=== PATIENT | female | born 1985 | race Caucasian/White ===

== ENCOUNTER 2017-10-16 18:04 | Inpatient (IN) | payer BC ==
[~2017-10-16 18:04] MED LIST: Oxytocin/0.9 % Sodium Chloride 0 UNIT/0 ML BAG ONE
[2017-10-16] MEDS ORDERED: Sodium Chloride 0.9% 2.5 ML Syringe FLUSH PRN (18:40)
[2017-10-16] MEDS ORDERED: Water For Irrigation,Sterile 1,000 ML Container IRR PRN (18:40)
[2017-10-16] MEDS ORDERED: Carboprost Tromethamine 250 MCG/1 ML Amp IM PRN (18:40)
[2017-10-16] MEDS ORDERED: Sodium Chloride 0.9% 10 ML Syringe FLUSH PRN (18:40)
[2017-10-16] MEDS ORDERED: Butorphanol 1 MG/ML SDV IVPUSH PRN (18:40)
[2017-10-16] MEDS ORDERED: Tranexamic Acid 1,000 MG in Sodium Chloride 0.9% 100 ML IV PRN (18:40)
[2017-10-16] MEDS ORDERED: Methylergonovine 0.2 MG/1 ML Amp IM PRN (18:40)
[2017-10-16] MEDS ORDERED: Misoprostol 200 MCG Tab PO PRN (18:40)
[2017-10-16] MEDS ORDERED: Terbutaline 1 MG/ML SDV SUBCUT PRN (18:40)
[2017-10-16] MEDS ORDERED: Lidocaine 1% 50 ML MDV INJECT PRN (18:40)
[2017-10-16] MEDS ORDERED: Oxytocin/0.9 % Sodium Chloride 30 UNIT/500 ML BAG IV SCH ×2 (18:45)
[2017-10-16] MEDS ORDERED: Misoprostol 25 MCG (1/4 of 100 MCG) Tab VAG SCH (18:45)
[2017-10-16] MEDS: Misoprostol 25 MCG (1/4 of 100 MCG) Tab VAG PRN (20:13)
[2017-10-17] MEDS: Misoprostol 25 MCG (1/4 of 100 MCG) Tab VAG PRN ×3 (00:31→09:13)
[2017-10-17] MEDS: Nalbuphine 10 MG/1 ML Vial IVPUSH PRN ×2 (04:14→12:42)
[2017-10-17] MEDS: Lactated Ringers 1,000 ML IV SCH ×4 (05:00→15:02)
[2017-10-17] MEDS ORDERED: Misoprostol 25 MCG (1/4 of 100 MCG) Tab PO ONE (09:05)
--- NOTE | 2017-10-17 14:09 | PCM.PREANE ---
Preanesthetic Assessment - Anesthesia/Transfusion/Family Hx Anesthesia History: Prior Anesthesia Without Reaction Transfusion History: No Prior Transfusion(s) - Review of Systems General: No Symptoms Pulmonary: No Symptoms Cardiovascular: No Symptoms Gastrointestinal: No Symptoms Neurological: No Symptoms Other: Reports: None - Physical Assessment Height: 5 ft 9 in Weight: 83.461 kg ASA Class: 2 Mental Status: Alert & Oriented x3 Airway Class: Mallampati = 2 Dentition: Reports: Normal Dentition Thyro-Mental Finger Breadths: 3 Mouth Opening Finger Breadths: 3 ROM/Head Extension: Full Lungs: Clear to Auscultation, Normal Respiratory Effort Cardiovascular: Regular Rate, Regular Rhythm - Lab Values: Laboratory Last Values WBC 8.48 K/uL (4.0-11.0) 10/16/17 19:12 RBC 3.23 M/uL (4.30-5.90) L 10/16/17 19:12 Hgb 10.8 g/dL (12.0-16.0) L 10/16/17 19:12 Hct 31.7 % (36.0-46.0) L 10/16/17 19:12 MCV 98.1 fL (80.0-98.0) H 10/16/17 19:12 MCH 33.4 pg (27.0-32.0) H 10/16/17 19:12 MCHC 34.1 g/dL (31.0-37.0) 10/16/17 19:12 RDW Std Deviation 48.9 fl (28.0-62.0) 10/16/17 19:12 RDW Coeff of Komal 14 % (11.0-15.0) 10/16/17 19:12 Plt Count 168 K/uL (150-400) 10/16/17 19:12 MPV 9.70 fL (7.40-12.00) 10/16/17 19:12 Nucleated RBC % 0.0 /100WBC 10/16/17 19:12 Nucleated RBCs # 0 K/uL 10/16/17 19:12 Blood Type A NEGATIVE 10/16/17 19:12 Antibody Screen NEGATIVE 10/16/17 19:12 - Allergies Allergies/Adverse Reactions: Allergies Allergy/AdvReac Type Severity Reaction Status Date / Time No Known Allergies Allergy Verified 10/16/17 18:39 - Acknowledgements Anesthesia Type Planned: Epidural Pt an Appropriate Candidate for the Planned Anesthesia: Yes Alternatives and Risks of Anesthesia Discussed w Pt/Guardian: Yes Pt/Guardian Understands and Agrees with Anesthesia Plan: Yes PreAnesthesia Questionnaire HEENT History: Reports: None Cardiovascular History: Reports: None Respiratory History: Reports: None Gastrointestinal History: Reports: GERD Genitourinary History: Reports: Renal Calculus [employer] History: Reports: : 1 Para: 0 LMP (Approximate): Musculoskeletal History: Reports: None Neurological History: Reports: None Psychiatric History: Reports: None Endocrine/Metabolic History: Reports: Hypothyroidism Hematologic History: Reports: Anemia Immunologic History: Reports: None Oncologic (Cancer) History: Reports: None Dermatologic History: Reports: None - Infectious Disease History Infectious Disease History: Reports: Human Papilloma Virus (HPV) - Past Surgical History Female Surgical History: Reports: LEEP, Lithotripsy/ESWL, Other (See Below) ( Hysteroscopy) - SUBSTANCE USE Smoking Status *Q: Never Smoker Second Hand Smoke Exposure: No Recreational Drug Use History: No - CURRENT (IN HOUSE) MEDS Current Meds: Current Medications Butorphanol Tartrate (Stadol) 1 mg IVPUSH Q1H PRN PRN Reason: Pain Carboprost Tromethamine (Hemabate Ds) 250 mcg IM ASDIRECTED PRN PRN Reason: Post Hemorrhage Lactated Ringer's (Ringers, Lactated) 1,000 mls @ 150 mls/hr IV ASDIRECTED AGUSTIN Oxytocin/Sodium Chloride (Oxytocin 30 Unit/500 Ml-Ns) 30 unit in 500 mls @ 999 mls/hr IV TITRATE AGUSTIN Oxytocin/Sodium Chloride (Oxytocin 30 Unit/500 Ml-Ns) 30 unit in 500 mls @ 2 mls/hr IV TITRATE AGUSTIN; 2 MUNITS/MIN PRN Reason: Protocol Tranexamic Acid 1,000 mg/ (Sodium Chloride) 110 mls @ 600 mls/hr IV ONETIME PRN PRN Reason: Bleeding Lidocaine HCl (Xylocaine 1%) 50 ml INJECT .ONCE PRN PRN Reason: Laceration repair Methylergonovine Maleate (Methergine) 0.2 mg IM ASDIRECTED PRN PRN Reason: Post Hemorrhage Misoprostol (Cytotec) 200 mcg PO .ONCE PRN PRN Reason: Post Hemorrhage Misoprostol (Cytotec) 25 mcg VAG .ONCE AGUSTIN Misoprostol (Cytotec) 25 mcg VAG Q4H PRN PRN Reason: Cervical Ripening Last Admin: 10/17/17 09:13 Dose: 25 mcg Nalbuphine HCl (Nubain) 10 mg IVPUSH Q1H PRN PRN Reason: Pain (severe 7-10) Last Admin: 10/17/17 12:42 Dose: 10 mg Sodium Chloride (Saline Flush) 10 ml FLUSH ASDIRECTED PRN PRN Reason: Keep Vein Open Sodium Chloride (Saline Flush) 2.5 ml FLUSH ASDIRECTED PRN PRN Reason: Keep Vein Open Sterile Water (Sterile Water For Irrigation) 1,000 ml IRR ASDIRECTED PRN PRN Reason: delivery Terbutaline Sulfate (Brethine) 0.25 mg SUBCUT ASDIRECTED PRN PRN Reason: Tacysystole Discontinued Medications Misoprostol (Cytotec) 25 mcg PO ONETIME ONE Stop: 10/17/17 09:06 Last Admin: 10/17/17 09:12 Dose: 25 mcg
[2017-10-17] MEDS ORDERED: Citric Acid/Sodium Citrate Solution 30 ML Cup PO ONE (18:09)
[2017-10-17] MEDS ORDERED: Ondansetron 4 MG/2 ML SDV IVPUSH ONE (19:40)
[2017-10-17] MEDS ORDERED: Ibuprofen 400 MG Tab PO PRN (21:29)
[2017-10-17] MEDS ORDERED: Methylergonovine 0.2 MG/1 ML Amp IM PRN (21:29)
[2017-10-17] MEDS ORDERED: Acetaminophen 500 MG Tab PO PRN (21:29)
[2017-10-17] MEDS ORDERED: Benzocaine/Menthol 20%-0.5% Spray 78 GM Cannister TOP PRN (21:29)
[2017-10-17] MEDS ORDERED: Witch Hazel Medicated Pads 40/Jar TOP PRN (21:29)
[2017-10-17] MEDS ORDERED: Lanolin 100% Cream 7 GM Tube TOP PRN (21:29)
[2017-10-17] MEDS ORDERED: Bisacodyl 10 MG Supp RECTAL PRN (21:29)
--- NOTE | 2017-10-17 21:40 | PCM.DEL ---
L & D Note - General Info Date of Service: 10/17/17 Mother's Due Date: 10/12/17 - Delivery Note Labor: Induced by Oxytocin Cervical Ripening Method: Balloon Device, Misoprostil Delivery Outcome: Livebirth Delivery Method: Spontaneous Vaginal Delivery-Single Presentation: Right Occiput Anterior (MARY) Nuchal Cord: Present Prep: Other Anesthesia Type: Epidural Amniotic Fluid Description: Clear Episiotomy Type: None Laceration: 2nd Degree Suture type: Other (Caprosyn) Suture size: 2-0 Placenta: Intact, Spontaneous Cord: 3 Vessels Estimated Blood Loss: 200 Resuscitation Needed: No [place]: Suctioned Score 1 min: 9 Score 5 min: 9 Second Stage Interventions: Reports: Encouragement Given, Pushing Effectively - Patient Data Weight - Most Recent: 83.461 kg Med Orders - Current: Current Medications Acetaminophen (Tylenol Extra Strength) 500 mg PO Q4H PRN PRN Reason: Pain Acetaminophen (Tylenol Extra Strength) 1,000 mg PO Q4H PRN PRN Reason: Pain Benzocaine/Menthol (Dermoplast Pain Relief 20%-0.5% [place]) 0 gm TOP ASDIRECTED PRN PRN Reason: Perineal Comfort Measure Bisacodyl (Dulcolax) 10 mg RECTAL .ONCE PRN PRN Reason: Constipation Docusate Sodium (Colace) 100 mg PO BID PRN PRN Reason: Constipation Emollient Ointment (Lansinoh Hpa) 0 gm TOP ASDIRECTED PRN PRN Reason: Sore Nipples Ibuprofen (Motrin) 400 mg PO Q4H PRN PRN Reason: Pain Ibuprofen (Motrin) 800 mg PO Q6H PRN PRN Reason: Pain Methylergonovine Maleate (Methergine) 0.2 mg IM .ONCE PRN PRN Reason: Excessive Vaginal Bleeding Oxycodone HCl (Oxycodone) 5 mg PO Q2H PRN PRN Reason: Pain Witch Ange (Tucks) 1 pad TOP ASDIRECTED PRN PRN Reason: comfort care Discontinued Medications Butorphanol Tartrate (Stadol) 1 mg IVPUSH Q1H PRN PRN Reason: Pain Carboprost Tromethamine (Hemabate Ds) 250 mcg IM ASDIRECTED PRN PRN Reason: Post Hemorrhage Citric Acid/Sodium Citrate (Bicitra Solution) 30 ml PO ONETIME ONE Stop: 10/17/17 18:10 Last Admin: 10/17/17 18:24 Dose: 30 ml Lactated Ringer's (Ringers, Lactated) 1,000 mls @ 150 mls/hr IV ASDIRECTED AGUSTIN Last Admin: 10/17/17 15:02 Dose: 150 mls/hr Oxytocin/Sodium Chloride (Oxytocin 30 Unit/500 Ml-Ns) 30 unit in 500 mls @ 999 mls/hr IV TITRATE AGUSTIN Oxytocin/Sodium Chloride (Oxytocin 30 Unit/500 Ml-Ns) 30 unit in 500 mls @ 2 mls/hr IV TITRATE AGUSTIN; 2 MUNITS/MIN PRN Reason: Protocol Last Titration: 10/17/17 16:14 Dose: 10 munits/min, 10 mls/hr Tranexamic Acid 1,000 mg/ (Sodium Chloride) 110 mls @ 600 mls/hr IV ONETIME PRN PRN Reason: Bleeding Fentanyl/Bupivacaine HCl (Wpiwuwev-Oqhut-Cq 2 Mcg/Ml-0.125%) Confirm Administered Dose 100 mls @ as directed EP .STK-MED ONE Stop: 10/17/17 14:22 Fentanyl/Bupivacaine HCl (Hxwmujtx-Nldtf-Qz 2 Mcg/Ml-0.125%) Confirm Administered Dose 100 mls @ as directed EP .STK-MED ONE Stop: 10/17/17 20:28 Lidocaine HCl (Xylocaine 1%) 50 ml INJECT .ONCE PRN PRN Reason: Laceration repair Methylergonovine Maleate (Methergine) 0.2 mg IM ASDIRECTED PRN PRN Reason: Post Hemorrhage Misoprostol (Cytotec) 200 mcg PO .ONCE PRN PRN Reason: Post Hemorrhage Misoprostol (Cytotec) 25 mcg VAG .ONCE AGUSTIN Misoprostol (Cytotec) 25 mcg VAG Q4H PRN PRN Reason: Cervical Ripening Last Admin: 10/17/17 09:13 Dose: 25 mcg Misoprostol (Cytotec) 25 mcg PO ONETIME ONE Stop: 10/17/17 09:06 Last Admin: 10/17/17 09:12 Dose: 25 mcg Nalbuphine HCl (Nubain) 10 mg IVPUSH Q1H PRN PRN Reason: Pain (severe 7-10) Last Admin: 10/17/17 12:42 Dose: 10 mg Ondansetron HCl (Zofran) 4 mg IVPUSH ONETIME ONE Stop: 10/17/17 19:41 Last Admin: 10/17/17 19:55 Dose: 4 mg Sodium Chloride (Saline Flush) 10 ml FLUSH ASDIRECTED PRN PRN Reason: Keep Vein Open Sodium Chloride (Saline Flush) 2.5 ml FLUSH ASDIRECTED PRN PRN Reason: Keep Vein Open Sterile Water (Sterile Water For Irrigation) 1,000 ml IRR ASDIRECTED PRN PRN Reason: delivery Terbutaline Sulfate (Brethine) 0.25 mg SUBCUT ASDIRECTED PRN PRN Reason: Tacysystole - Problem List & Annotations (1) Vaginal delivery SNOMED Code(s): 687558868 Code(s): O80 - ENCOUNTER FOR FULL-TERM UNCOMPLICATED DELIVERY Status: Acute Current Visit: Yes - Problem List Review Problem List Initiated/Reviewed/Updated: Yes - My Orders Last 24 Hours: My Active Orders 10/17/17 20:57 BLOOD GAS ARTERIAL UMBILICAL [BG] Routine BLOOD GAS VENOUS UMBILICAL [BG] Routine 10/17/17 21:29 Patient Status [ADT] Routine May Shower [RC] ASDIRECTED Up ad Risa [RC] ASDIRECTED Vital Signs [RC] PER UNIT ROUTINE RHIG WORKUP, [BBK] Routine Acetaminophen [Tylenol Extra Strength] 1,000 mg PO Q4H PRN Acetaminophen [Tylenol Extra Strength] 500 mg PO Q4H PRN Benzocaine/Menthol [Dermoplast Pain Relief 20%-0.5% [place]] 78 gm TOP ASDIRECTED PRN Bisacodyl [Dulcolax] 10 mg RECTAL .ONCE PRN Docusate Sodium [Colace] 100 mg PO BID PRN Ibuprofen [Motrin] 400 mg PO Q4H PRN Ibuprofen [Motrin] 800 mg PO Q6H PRN Lanolin [Lansinoh HPA] See Dose Instructions TOP ASDIRECTED PRN Methylergonovine [Methergine] 0.2 mg IM .ONCE PRN Witch Ange [Tucks] 1 pad TOP ASDIRECTED PRN oxyCODONE 5 mg PO Q2H PRN Assess Lochia [WOMSER] Per Unit Routine Assess Uterine Involution [WOMSER] Per Unit Routine Peripheral IV Discontinue [OM.PC] Routine Resuscitation Status Routine 10/17/17 21:30 Perineal Care [OM.PC] Per Unit Routine 10/18/17 05:11 HEMOGLOBIN/HEMATOCRIT,HH [HEME] Timed 10/18/17 07:30 Levothyroxine [Synthroid] 100 mcg PO ACBREAKFAST 10/18/17 Breakfast Regular Diet [DIET] 10/19/17 07:30 Levothyroxine [Synthroid] 50 mcg PO ACBREAKFAST
--- NOTE | 2017-10-18 02:14 | OR ---
SURGEON: Sade Garcia M.D. DATE OF PROCEDURE: 10/17/2017 PREOPERATIVE DIAGNOSES: A 40 and 4/7 week intrauterine , postdates induction, in vitro fertilization . POSTOPERATIVE DIAGNOSES: A 40 and 4/7 week intrauterine , postdates induction, in vitro fertilization . PROCEDURE: Cytotec balloon and Pitocin induction of labor, term spontaneous vaginal delivery, and repair of second-degree laceration. ANESTHESIA: Epidural. ESTIMATED BLOOD LOSS: Less than 200 mL. FINDINGS: Live born male, scores 9 and 9 weighing 4040 g. Placenta spontaneous. Schultze intact with 3 vessels. Second-degree perineal laceration repaired. COMPLICATIONS: None known. DISPOSITION: Mother and baby are in [facility] in good condition. BRIEF HISTORY: This is a 32-year-old female. She is G1, P0. She conceived with in-vitro fertilization. She is blood type A negative. Rubella immune. She presents at 40 and 3/7 weeks' gestation for induction of labor. She received 3 doses of Cytotec followed by balloon for assistance with cervical dilatation. After she had been in the process of induction for approximately 18 hours, she had spontaneous rupture of membranes. The balloon was expelled. Intrauterine pressure catheter was placed. She received an epidural, and Pitocin was initiated. By 6:00 p.m., she was 5 cm. By 8:00 p.m., she was complete. DESCRIPTION OF PROCEDURE: With the patient in dorsal lithotomy position, the patient pushed over 30-minute time period to a 5+ station, at which time the head was delivered spontaneously and atraumatically over the perineum with support with subsequent delivery of the 's shoulders and body without any difficulty. Nuchal cord was noted and was reduced after delivery. The infant was bulb suctioned by nose and mouth and handed to the mother in the presence of the nurse attending delivery. The is a liveborn male, scores 9 and 9, weighing 4040 g. Pitocin was initiated after delivery of the infant to assist with delivery of the placenta, which was delivered spontaneously. Schultze intact with 3 vessels. Prior to delivery of the placenta after the cord had ceased to pulsate, it was doubly clamped, cut, and cord blood was collected for cord ABGs as well as routine cord blood sampling. Inspection of the pelvis and perineum revealed no periurethral, vaginal sidewall, cervical, or rectal lacerations. There was a second-degree perineal laceration that was repaired using multiple interrupted [id number] sutures of 2-0 Caprosyn for the perineum. A deep running suture of 2-0 Caprosyn for the vaginal mucosa with a running suture over the perineum for approximation, and a subcuticular suture of the same for the skin. Final sponge, needle, and instrument counts were correct. There were no known complications. Mother and are in [facility] in good condition. JULITA GOODWIN /[id number]
[2017-10-18] MEDS: Ibuprofen 800 MG Tab PO PRN ×3 (05:26→21:49)
[2017-10-18] MEDS: oxyCODONE 5 MG Tab PO PRN ×3 (05:27→21:48)
[2017-10-18] MEDS ORDERED: Levothyroxine 100 MCG Tab PO SCH ×2 (07:30→07:50)
--- NOTE | 2017-10-18 07:41 | PCM48HPAN ---
Post Anesthesia Note - EVALUATION WITHIN 48HRS OF ANESTHETIC Vital Signs in Normal Range: Yes Patient Participated in Evaluation: Yes Respiratory Function Stable: Yes Airway Patent: Yes Cardiovascular Function Stable: Yes Hydration Status Stable: Yes Pain Control Satisfactory: Yes Nausea and Vomiting Control Satisfactory: Yes Mental Status Recovered: Yes Resp Rate: 18
[2017-10-18] MEDS ORDERED: Hydrocortisone 2.5% Crm 30 GM Tube TOP PRN (08:56)
--- NOTE | 2017-10-18 09:03 | PCM.PNPP ---
- General Info Date of Service: 10/18/17 Functional Status: Reports: Pain Controlled, Tolerating Diet, Ambulating, Urinating, Other (c/o painful hemorrhoids) - Review of Systems General: Denies: Fever, Malaise, Chills HEENT: Denies: Headaches Pulmonary: Denies: Shortness of Breath, Pleuritic Chest Pain Cardiovascular: Denies: Chest Pain, Palpitations, Dyspnea on Exertion Gastrointestinal: Denies: Abdominal Pain Genitourinary: Denies: Dysuria, Burning, Incontinence Psychiatric: Reports: No Symptoms - General Info Date of Service: 10/18/17 - Patient Data Vital Signs - Most Recent: Last Vital Signs Temp 36.3 C 10/18/17 01:00 Pulse 88 10/18/17 01:00 Resp 18 10/18/17 07:40 BP 96/61 10/18/17 01:00 Pulse Ox 96 10/18/17 01:00 Weight - Most Recent: 184 lb Lab Results - Last 24 Hours: Laboratory Results - last 24 hr 10/17/17 10/17/17 10/18/17 Range/Units 20:56 22:15 06:30 Hgb 9.7 L (12.0-16.0) g/dL Hct 28.4 L (36.0-46.0) % Cord ABG pH 7.147 L (7.18-7.38) Cord ABG Base Excess -7 (-10--2) Cord VBG pH 7.309 (7.25-7.45) Cord VBG Base Excess -5 (-10--2) Antibody Screen NEGATIVE Screen NEGATIVE (NEGATIVE) RhIG Candidate? YES Rhogam Indicated YES, BABY RH POS H Med Orders - Current: Current Medications Acetaminophen (Tylenol Extra Strength) 500 mg PO Q4H PRN PRN Reason: Pain Acetaminophen (Tylenol Extra Strength) 1,000 mg PO Q4H PRN PRN Reason: Pain Benzocaine/Menthol (Dermoplast Pain Relief 20%-0.5% [place]) 0 gm TOP ASDIRECTED PRN PRN Reason: Perineal Comfort Measure Bisacodyl (Dulcolax) 10 mg RECTAL .ONCE PRN PRN Reason: Constipation Docusate Sodium (Colace) 100 mg PO BID PRN PRN Reason: Constipation Emollient Ointment (Lansinoh Hpa) 0 gm TOP ASDIRECTED PRN PRN Reason: Sore Nipples Hydrocortisone (Proctozone-Hc 2.5% Crm) 0.5 gm TOP QID PRN PRN Reason: Itching Ibuprofen (Motrin) 400 mg PO Q4H PRN PRN Reason: Pain Ibuprofen (Motrin) 800 mg PO Q6H PRN PRN Reason: Pain Last Admin: 10/18/17 05:26 Dose: 800 mg Levothyroxine Sodium (Synthroid) 50 mcg PO [id number]@0730 AGUSTIN Levothyroxine Sodium (Synthroid) 100 mcg PO [id number]@0730 [facility] Last Admin: 10/18/17 07:59 Dose: 100 mcg Methylergonovine Maleate (Methergine) 0.2 mg IM .ONCE PRN PRN Reason: Excessive Vaginal Bleeding Oxycodone HCl (Oxycodone) 5 mg PO Q2H PRN PRN Reason: Pain Last Admin: 10/18/17 05:27 Dose: 5 mg Witch Ange (Tucks) 1 pad TOP ASDIRECTED PRN PRN Reason: comfort care Discontinued Medications Butorphanol Tartrate (Stadol) 1 mg IVPUSH Q1H PRN PRN Reason: Pain Carboprost Tromethamine (Hemabate Ds) 250 mcg IM ASDIRECTED PRN PRN Reason: Post Hemorrhage Citric Acid/Sodium Citrate (Bicitra Solution) 30 ml PO ONETIME ONE Stop: 10/17/17 18:10 Last Admin: 10/17/17 18:24 Dose: 30 ml Lactated Ringer's (Ringers, Lactated) 1,000 mls @ 150 mls/hr IV ASDIRECTED [facility] Last Admin: 10/17/17 15:02 Dose: 150 mls/hr Oxytocin/Sodium Chloride (Oxytocin 30 Unit/500 Ml-Ns) 30 unit in 500 mls @ 999 mls/hr IV TITRATE AGUSTIN Oxytocin/Sodium Chloride (Oxytocin 30 Unit/500 Ml-Ns) 30 unit in 500 mls @ 2 mls/hr IV TITRATE [facility]; 2 MUNITS/MIN PRN Reason: Protocol Last Titration: 10/17/17 16:14 Dose: 10 munits/min, 10 mls/hr Tranexamic Acid 1,000 mg/ (Sodium Chloride) 110 mls @ 600 mls/hr IV ONETIME PRN PRN Reason: Bleeding Fentanyl/Bupivacaine HCl (Keoxoxag-Gyhkm-Es 2 Mcg/Ml-0.125%) Confirm Administered Dose 100 mls @ as directed EP .STK-MED ONE Stop: 10/17/17 14:22 Fentanyl/Bupivacaine HCl (Zagkqybv-Rgjjh-Ea 2 Mcg/Ml-0.125%) Confirm Administered Dose 100 mls @ as directed EP .STK-MED ONE Stop: 10/17/17 20:28 Levothyroxine Sodium (Synthroid) 100 mcg PO ACBREAKFAST AGUSTIN Lidocaine HCl (Xylocaine 1%) 50 ml INJECT .ONCE PRN PRN Reason: Laceration repair Methylergonovine Maleate (Methergine) 0.2 mg IM ASDIRECTED PRN PRN Reason: Post Hemorrhage Misoprostol (Cytotec) 200 mcg PO .ONCE PRN PRN Reason: Post Hemorrhage Misoprostol (Cytotec) 25 mcg VAG .ONCE AGUSTIN Misoprostol (Cytotec) 25 mcg VAG Q4H PRN PRN Reason: Cervical Ripening Last Admin: 10/17/17 09:13 Dose: 25 mcg Misoprostol (Cytotec) 25 mcg PO ONETIME ONE Stop: 10/17/17 09:06 Last Admin: 10/17/17 09:12 Dose: 25 mcg Nalbuphine HCl (Nubain) 10 mg IVPUSH Q1H PRN PRN Reason: Pain (severe 7-10) Last Admin: 10/17/17 12:42 Dose: 10 mg Ondansetron HCl (Zofran) 4 mg IVPUSH ONETIME ONE Stop: 10/17/17 19:41 Last Admin: 10/17/17 19:55 Dose: 4 mg Sodium Chloride (Saline Flush) 10 ml FLUSH ASDIRECTED PRN PRN Reason: Keep Vein Open Sodium Chloride (Saline Flush) 2.5 ml FLUSH ASDIRECTED PRN PRN Reason: Keep Vein Open Sterile Water (Sterile Water For Irrigation) 1,000 ml IRR ASDIRECTED PRN PRN Reason: delivery Terbutaline Sulfate (Brethine) 0.25 mg SUBCUT ASDIRECTED PRN PRN Reason: Tacysystole - Infant Interaction Infant Disposition, : in Room with Family Feeding: Breastfed Infant; Nursed Well, Continues to Breastfeed Support Person: - Recovery Exam Fundal Tone: Firm Fundal Level: 1 Fingerbreadths Below Umbilicus Fundal Placement: Midline Lochia Amount: Small Lochia Color: Rubra/Red Perineum Description: Intact, Minimal Bruising/Swelling Urinary Elimination: Voided - Exam General: Alert, Oriented Lungs: Clear to Auscultation, Normal Respiratory Effort Cardiovascular: Regular Rate, Regular Rhythm GI/Abdominal Exam: Normal Bowel Sounds, Soft, Non-Tender Extremities: No Pedal Edema, Pedal Edema Skin: Warm Neurological: No New Focal Deficit Psy/Mental Status: Alert, Normal Affect, Normal Mood - Problem List & Annotations (1) Vaginal delivery SNOMED Code(s): 280171915 Code(s): O80 - ENCOUNTER FOR FULL-TERM UNCOMPLICATED DELIVERY Status: Acute Current Visit: Yes - Problem List Review Problem List Initiated/Reviewed/Updated: Yes - My Orders Last 24 Hours: My Active Orders 10/18/17 08:56 Hydrocortisone [Proctozone-HC 2.5% Crm] 0.5 gm TOP QID PRN - Assessment Assessment:: PPD#1 s/p normal vaginal delivery, stable and afebrile - Plan Plan:: Continue routine care Anusol-HC cream PRN for haemorrhoids Aim for discharge tomorrow
[2017-10-18] MEDS: Docusate Sodium 100 MG Cap PO PRN ×2 (12:37→21:48)
[2017-10-18] MEDS: Acetaminophen 500 MG Tab PO PRN (18:03)
[2017-10-19] MEDS: Ibuprofen 800 MG Tab PO PRN ×2 (03:20→08:08)
[2017-10-19] MEDS ORDERED: Levothyroxine 50 MCG Tab PO SCH (07:30)
--- NOTE | 2017-10-19 08:23 | PCM.PNPP ---
<Yuko Burrows - Last Filed: 10/19/17 08:20> - General Info Date of Service: 10/19/17 Functional Status: Reports: Pain Controlled, Tolerating Diet, Ambulating, Urinating - Review of Systems General: Denies: Fever, Weakness, Fatigue Pulmonary: Denies: Shortness of Breath, Pleuritic Chest Pain, Cough Cardiovascular: Denies: Chest Pain, Palpitations, Dyspnea on Exertion Gastrointestinal: Denies: Abdominal Pain Genitourinary: Denies: Dysuria - General Info Date of Service: 10/19/17 - Patient Data Vital Signs - Most Recent: Last Vital Signs Temp 36.7 C 10/18/17 20:00 Pulse 82 10/18/17 20:00 Resp 16 10/18/17 20:00 BP 102/60 10/18/17 20:00 Pulse Ox 98 10/18/17 20:00 Weight - Most Recent: 184 lb I&O - Last 24 Hours: Intake & Output 10/18/17 10/19/17 10/19/17 22:59 06:59 14:59 Intake Total 2 Balance 2 Lab Results - Last 24 Hours: Laboratory Results - last 24 hr 10/17/17 Range/Units 22:15 Antibody Screen NEGATIVE Screen NEGATIVE (NEGATIVE) RhIG Candidate? YES Rhogam Indicated YES, BABY RH POS H Med Orders - Current: Current Medications Acetaminophen (Tylenol Extra Strength) 500 mg PO Q4H PRN PRN Reason: Pain Acetaminophen (Tylenol Extra Strength) 1,000 mg PO Q4H PRN PRN Reason: Pain Last Admin: 10/18/17 18:03 Dose: 1,000 mg Benzocaine/Menthol (Dermoplast Pain Relief 20%-0.5% [place]) 0 gm TOP ASDIRECTED PRN PRN Reason: Perineal Comfort Measure Bisacodyl (Dulcolax) 10 mg RECTAL .ONCE PRN PRN Reason: Constipation Docusate Sodium (Colace) 100 mg PO BID PRN PRN Reason: Constipation Last Admin: 10/18/17 21:48 Dose: 100 mg Emollient Ointment (Lansinoh Hpa) 0 gm TOP ASDIRECTED PRN PRN Reason: Sore Nipples Hydrocortisone (Proctozone-Hc 2.5% Crm) 0.5 gm TOP QID PRN PRN Reason: Itching Ibuprofen (Motrin) 400 mg PO Q4H PRN PRN Reason: Pain Ibuprofen (Motrin) 800 mg PO Q6H PRN PRN Reason: Pain Last Admin: 10/19/17 08:08 Dose: 800 mg Levothyroxine Sodium (Synthroid) 50 mcg PO SuTuWeFrSa@0730 [facility] Last Admin: 10/19/17 07:46 Dose: 50 mcg Levothyroxine Sodium (Synthroid) 100 mcg PO MoTh@0730 [facility] Last Admin: 10/18/17 07:59 Dose: 100 mcg Methylergonovine Maleate (Methergine) 0.2 mg IM .ONCE PRN PRN Reason: Excessive Vaginal Bleeding Oxycodone HCl (Oxycodone) 5 mg PO Q2H PRN PRN Reason: Pain Last Admin: 10/18/17 21:48 Dose: 5 mg Witch Ange (Tucks) 1 pad TOP ASDIRECTED PRN PRN Reason: comfort care Discontinued Medications Butorphanol Tartrate (Stadol) 1 mg IVPUSH Q1H PRN PRN Reason: Pain Carboprost Tromethamine (Hemabate Ds) 250 mcg IM ASDIRECTED PRN PRN Reason: Post Hemorrhage Citric Acid/Sodium Citrate (Bicitra Solution) 30 ml PO ONETIME ONE Stop: 10/17/17 18:10 Last Admin: 10/17/17 18:24 Dose: 30 ml Lactated Ringer's (Ringers, Lactated) 1,000 mls @ 150 mls/hr IV ASDIRECTED [facility] Last Admin: 10/17/17 15:02 Dose: 150 mls/hr Oxytocin/Sodium Chloride (Oxytocin 30 Unit/500 Ml-Ns) 30 unit in 500 mls @ 999 mls/hr IV TITRATE AGUSTIN Oxytocin/Sodium Chloride (Oxytocin 30 Unit/500 Ml-Ns) 30 unit in 500 mls @ 2 mls/hr IV TITRATE [facility]; 2 MUNITS/MIN PRN Reason: Protocol Last Titration: 10/17/17 16:14 Dose: 10 munits/min, 10 mls/hr Tranexamic Acid 1,000 mg/ (Sodium Chloride) 110 mls @ 600 mls/hr IV ONETIME PRN PRN Reason: Bleeding Fentanyl/Bupivacaine HCl (Gqooplqv-Quvut-Cp 2 Mcg/Ml-0.125%) Confirm Administered Dose 100 mls @ as directed EP .STK-MED ONE Stop: 10/17/17 14:22 Last Admin: 10/18/17 20:25 Dose: Not Given Fentanyl/Bupivacaine HCl (Ubpsidsl-Mtsea-Yu 2 Mcg/Ml-0.125%) Confirm Administered Dose 100 mls @ as directed EP .STK-MED ONE Stop: 10/17/17 20:28 Last Admin: 10/18/17 20:25 Dose: Not Given Levothyroxine Sodium (Synthroid) 100 mcg PO ACBREAKFAST AGUSTIN Lidocaine HCl (Xylocaine 1%) 50 ml INJECT .ONCE PRN PRN Reason: Laceration repair Methylergonovine Maleate (Methergine) 0.2 mg IM ASDIRECTED PRN PRN Reason: Post Hemorrhage Misoprostol (Cytotec) 200 mcg PO .ONCE PRN PRN Reason: Post Hemorrhage Misoprostol (Cytotec) 25 mcg VAG .ONCE AGUSTIN Misoprostol (Cytotec) 25 mcg VAG Q4H PRN PRN Reason: Cervical Ripening Last Admin: 10/17/17 09:13 Dose: 25 mcg Misoprostol (Cytotec) 25 mcg PO ONETIME ONE Stop: 10/17/17 09:06 Last Admin: 10/17/17 09:12 Dose: 25 mcg Nalbuphine HCl (Nubain) 10 mg IVPUSH Q1H PRN PRN Reason: Pain (severe 7-10) Last Admin: 10/17/17 12:42 Dose: 10 mg Ondansetron HCl (Zofran) 4 mg IVPUSH ONETIME ONE Stop: 10/17/17 19:41 Last Admin: 10/17/17 19:55 Dose: 4 mg Sodium Chloride (Saline Flush) 10 ml FLUSH ASDIRECTED PRN PRN Reason: Keep Vein Open Sodium Chloride (Saline Flush) 2.5 ml FLUSH ASDIRECTED PRN PRN Reason: Keep Vein Open Sterile Water (Sterile Water For Irrigation) 1,000 ml IRR ASDIRECTED PRN PRN Reason: delivery Terbutaline Sulfate (Brethine) 0.25 mg SUBCUT ASDIRECTED PRN PRN Reason: Tacysystole - Infant Interaction Infant Disposition, : in Room with Family Infant Interaction: Holding Infant Infant Feeding: Breastfed Infant; Nursed Well, Continues to Breastfeed Support Person: - Recovery Exam Fundal Tone: Firm Fundal Level: 2 Fingerbreadths Below Umbilicus Fundal Placement: Midline Lochia Amount: Scant Lochia Color: Rubra/Red Perineum Description: Other (see below) Other Perinuem Description: 2nd degree laceration with repair Episiotomy/Laceration: Approximated Bladder Status: Voiding Urinary Elimination: Voided - Exam General: Alert, Oriented Neck: Supple Lungs: Clear to Auscultation, Normal Respiratory Effort Cardiovascular: Regular Rate, Regular Rhythm GI/Abdominal Exam: Normal Bowel Sounds, No Distention Extremities: Normal Inspection, Normal Capillary Refill, Pedal Edema (trace) Psy/Mental Status: Alert, Normal Affect, Normal Mood - Problem List Review Problem List Initiated/Reviewed/Updated: Yes - Assessment Assessment:: PPD#2 s/p normal vaginal delivery. Minimal pain and lochia. Discharge home today. - Plan Plan:: Discharge instructions reviewed. Nothing in the vagina for 6 weeks. Continue PNV while breast feeding. Can use OTC ibuprofen/tylenol as needed for pain. Instructed patient to call if she develops fever greater then 101 or bleeding through a large pad an hour. F/U with [facility] in 6 weeks <Jackie Soriano - Last Filed: 10/19/17 08:54> - Patient Data Vital Signs - Most Recent: Last Vital Signs Temp 36.7 C 10/18/17 20:00 Pulse 82 10/18/17 20:00 Resp 16 10/18/17 20:00 BP 102/60 10/18/17 20:00 Pulse Ox 98 10/18/17 20:00 I&O - Last 24 Hours: Intake & Output 10/18/17 10/19/17 10/19/17 22:59 06:59 14:59 Intake Total 2 Balance 2 Lab Results - Last 24 Hours: Laboratory Results - last 24 hr 10/17/17 Range/Units 22:15 Antibody Screen NEGATIVE Screen NEGATIVE (NEGATIVE) RhIG Candidate? YES Rhogam Indicated YES, BABY RH POS H Med Orders - Current: Current Medications Acetaminophen (Tylenol Extra Strength) 500 mg PO Q4H PRN PRN Reason: Pain Acetaminophen (Tylenol Extra Strength) 1,000 mg PO Q4H PRN PRN Reason: Pain Last Admin: 10/18/17 18:03 Dose: 1,000 mg Benzocaine/Menthol (Dermoplast Pain Relief 20%-0.5% [place]) 0 gm TOP ASDIRECTED PRN PRN Reason: Perineal Comfort Measure Bisacodyl (Dulcolax) 10 mg RECTAL .ONCE PRN PRN Reason: Constipation Docusate Sodium (Colace) 100 mg PO BID PRN PRN Reason: Constipation Last Admin: 10/18/17 21:48 Dose: 100 mg Emollient Ointment (Lansinoh Hpa) 0 gm TOP ASDIRECTED PRN PRN Reason: Sore Nipples Hydrocortisone (Proctozone-Hc 2.5% Crm) 0.5 gm TOP QID PRN PRN Reason: Itching Ibuprofen (Motrin) 400 mg PO Q4H PRN PRN Reason: Pain Ibuprofen (Motrin) 800 mg PO Q6H PRN PRN Reason: Pain Last Admin: 10/19/17 08:08 Dose: 800 mg Levothyroxine Sodium (Synthroid) 50 mcg PO SuTuWeFrSa@0730 [facility] Last Admin: 10/19/17 07:46 Dose: 50 mcg Levothyroxine Sodium (Synthroid) 100 mcg PO MoTh@0730 [facility] Last Admin: 10/18/17 07:59 Dose: 100 mcg Methylergonovine Maleate (Methergine) 0.2 mg IM .ONCE PRN PRN Reason: Excessive Vaginal Bleeding Oxycodone HCl (Oxycodone) 5 mg PO Q2H PRN PRN Reason: Pain Last Admin: 10/18/17 21:48 Dose: 5 mg Witch Ange (Tucks) 1 pad TOP ASDIRECTED PRN PRN Reason: comfort care Discontinued Medications Butorphanol Tartrate (Stadol) 1 mg IVPUSH Q1H PRN PRN Reason: Pain Carboprost Tromethamine (Hemabate Ds) 250 mcg IM ASDIRECTED PRN PRN Reason: Post Hemorrhage Citric Acid/Sodium Citrate (Bicitra Solution) 30 ml PO ONETIME ONE Stop: 10/17/17 18:10 Last Admin: 10/17/17 18:24 Dose: 30 ml Lactated Ringer's (Ringers, Lactated) 1,000 mls @ 150 mls/hr IV ASDIRECTED [facility] Last Admin: 10/17/17 15:02 Dose: 150 mls/hr Oxytocin/Sodium Chloride (Oxytocin 30 Unit/500 Ml-Ns) 30 unit in 500 mls @ 999 mls/hr IV TITRATE AGUSTIN Oxytocin/Sodium Chloride (Oxytocin 30 Unit/500 Ml-Ns) 30 unit in 500 mls @ 2 mls/hr IV TITRATE AGUSTIN; 2 MUNITS/MIN PRN Reason: Protocol Last Titration: 10/17/17 16:14 Dose: 10 munits/min, 10 mls/hr Tranexamic Acid 1,000 mg/ (Sodium Chloride) 110 mls @ 600 mls/hr IV ONETIME PRN PRN Reason: Bleeding Fentanyl/Bupivacaine HCl (Ckdqvmwn-Eavqm-Ip 2 Mcg/Ml-0.125%) Confirm Administered Dose 100 mls @ as directed EP .STK-MED ONE Stop: 10/17/17 14:22 Last Admin: 10/18/17 20:25 Dose: Not Given Fentanyl/Bupivacaine HCl (Zplihrul-Wjtic-Pz 2 Mcg/Ml-0.125%) Confirm Administered Dose 100 mls @ as directed EP .STK-MED ONE Stop: 10/17/17 20:28 Last Admin: 10/18/17 20:25 Dose: Not Given Levothyroxine Sodium (Synthroid) 100 mcg PO ACBREAKFAST [facility] Lidocaine HCl (Xylocaine 1%) 50 ml INJECT .ONCE PRN PRN Reason: Laceration repair Methylergonovine Maleate (Methergine) 0.2 mg IM ASDIRECTED PRN PRN Reason: Post Hemorrhage Misoprostol (Cytotec) 200 mcg PO .ONCE PRN PRN Reason: Post Hemorrhage Misoprostol (Cytotec) 25 mcg VAG .ONCE [facility] Misoprostol (Cytotec) 25 mcg VAG Q4H PRN PRN Reason: Cervical Ripening Last Admin: 10/17/17 09:13 Dose: 25 mcg Misoprostol (Cytotec) 25 mcg PO ONETIME ONE Stop: 10/17/17 09:06 Last Admin: 10/17/17 09:12 Dose: 25 mcg Nalbuphine HCl (Nubain) 10 mg IVPUSH Q1H PRN PRN Reason: Pain (severe 7-10) Last Admin: 10/17/17 12:42 Dose: 10 mg Ondansetron HCl (Zofran) 4 mg IVPUSH ONETIME ONE Stop: 10/17/17 19:41 Last Admin: 10/17/17 19:55 Dose: 4 mg Sodium Chloride (Saline Flush) 10 ml FLUSH ASDIRECTED PRN PRN Reason: Keep Vein Open Sodium Chloride (Saline Flush) 2.5 ml FLUSH ASDIRECTED PRN PRN Reason: Keep Vein Open Sterile Water (Sterile Water For Irrigation) 1,000 ml IRR ASDIRECTED PRN PRN Reason: delivery Terbutaline Sulfate (Brethine) 0.25 mg SUBCUT ASDIRECTED PRN PRN Reason: Tacysystole - Problem List & Annotations (1) Vaginal delivery SNOMED Code(s): 405354967 Code(s): O80 - ENCOUNTER FOR FULL-TERM UNCOMPLICATED DELIVERY Status: Acute Current Visit: Yes - My Orders Last 24 Hours: My Active Orders 10/18/17 08:56 Hydrocortisone [Proctozone-HC 2.5% Crm] 0.5 gm TOP QID PRN - Assessment Assessment:: Agree with above - Plan Plan:: Patient discharged home today.
[2017-10-19] MEDS: Acetaminophen 500 MG Tab PO PRN (12:42)
== END 2017-10-19 13:30 | disposition home or self-care (01) | DRG 560 ==
LOC: MW.OBCHECK 18:04 → MW.OB 18:05 → MW.OBCHECK 18:41 → MW.OB 18:41 → OBSVTOIN 10-17 20:56
PROVIDERS: ADMIT Obstetrics & Gynecology; ATTEND Obstetrics & Gynecology
PROC: 10E0XZZ Delivery of Products of Conception, External Approach (ICD-10-PCS; principal; 2017-10-17)
PROC: 3E0P7VZ Introduction of Hormone into Female Reproductive, Via Natural or Artificial Opening (ICD-10-PCS; 2017-10-17)
PROC: 0U7C7ZZ Dilation of Cervix, Via Natural or Artificial Opening (ICD-10-PCS; 2017-10-17)
PROC: 3E033VJ Introduction of Other Hormone into Peripheral Vein, Percutaneous Approach (ICD-10-PCS; 2017-10-17)
PROC: 0KQM0ZZ Repair Perineum Muscle, Open Approach (ICD-10-PCS; 2017-10-17)
DX: O48.0 Post-term pregnancy (principal); O70.1 Second degree perineal laceration during delivery; O69.1XX0 Labor and delivery complicated by cord around neck, with compression, not applicable or unspecified; O09.813 Supervision of pregnancy resulting from assisted reproductive technology, third trimester; Z3A.40 40 weeks gestation of pregnancy; Z37.0 Single live birth
CPT/HCPCS: 36415; 51702; 59025; 59409; 82803; 85014; 85018; 85027; 85460; 86850; 86900; 86901; A9270-GY; J2300; J2405; J2590; J2790; J7120

== ENCOUNTER 2020-02-20 13:23 | Inpatient (IN) | payer BC ==
[2020-02-20] MEDS ORDERED: Methylergonovine 0.2 MG/1 ML Amp IM PRN (13:36)
[2020-02-20] MEDS ORDERED: Tranexamic Acid 1,000 MG in Sodium Chloride 0.9% 100 ML IV PRN (13:36)
[2020-02-20] MEDS ORDERED: Ondansetron 4 MG/2 ML SDV IVPUSH PRN (13:36)
[2020-02-20] MEDS ORDERED: Sodium Chloride 0.9% 2.5 ML Syringe FLUSH PRN (13:36)
[2020-02-20] MEDS ORDERED: Butorphanol 1 MG/ML SDV IVPUSH PRN (13:36)
[2020-02-20] MEDS ORDERED: Carboprost Tromethamine 250 MCG/1 ML Amp IM PRN (13:36)
[2020-02-20] MEDS ORDERED: Nalbuphine 10 MG/1 ML Vial IVPUSH PRN (13:36)
[2020-02-20] MEDS ORDERED: Lidocaine 1% 50 ML MDV INJECT PRN (13:36)
[2020-02-20] MEDS ORDERED: Sodium Chloride 0.9% 10 ML SDV IV PRN (13:36)
[2020-02-20] MEDS ORDERED: Sodium Chloride 0.9% 10 ML Syringe FLUSH PRN (13:36)
[2020-02-20] MEDS ORDERED: Misoprostol 200 MCG Tab PO PRN (13:36)
[2020-02-20] MEDS ORDERED: Water For Irrigation,Sterile 1,000 ML Container IRR PRN (13:36)
[2020-02-20] MEDS ORDERED: Oxytocin/0.9 % Sodium Chloride 30 UNIT/500 ML BAG IV SCH ×2 (13:45→14:45)
[2020-02-20] MEDS ORDERED: Terbutaline 1 MG/ML SDV SUBCUT PRN ×2 (14:32→17:52)
[2020-02-20] MEDS ORDERED: Misoprostol 25 MCG (1/4 of 100 MCG) Tab PO PRN (14:32)
[2020-02-20] MEDS ORDERED: Misoprostol 25 MCG (1/4 of 100 MCG) Tab VAG PRN ×2 (14:32→19:15)
[2020-02-20] MEDS: Misoprostol 25 MCG (1/4 of 100 MCG) Tab VAG PRN (20:10)
[2020-02-21] MEDS: Misoprostol 25 MCG (1/4 of 100 MCG) Tab VAG PRN (01:02)
[2020-02-21] MEDS ORDERED: hydrOXYzine Pamoate 25 MG Cap PO ONE (01:51)
[2020-02-21] MEDS: Lactated Ringers 1,000 ML IV SCH ×2 (04:15→08:28)
[2020-02-21] MEDS ORDERED: fentaNYL 100 MCG/2 ML SDV ONE (07:56)
[2020-02-21] MEDS ORDERED: Ropivacaine HCl/PF 100 ML ONE (07:56)
--- NOTE | 2020-02-21 08:23 | PCM.PREANE ---
Preanesthetic Assessment - Anesthesia/Transfusion/Family Hx Anesthesia History: Prior Anesthesia Without Reaction Family History of Anesthesia Reaction: No Transfusion History: No Prior Transfusion(s) Type of Transfusion Reactions: Reports: Unknown - Physical Assessment NPO Status Date: 02/21/20 NPO Status Time: 05:00 Height: 1.83 m Weight: 84.368 kg ASA Class: 1 - Lab Values: Laboratory Last Values WBC 7.36 K/uL (4.0-11.0) 02/20/20 14:15 RBC 3.49 M/uL (4.30-5.90) L 02/20/20 14:15 Hgb 11.2 g/dL (12.0-16.0) L 02/20/20 14:15 Hct 34.6 % (36.0-46.0) L 02/20/20 14:15 MCV 99.1 fL (80.0-98.0) H 02/20/20 14:15 MCH 32.1 pg (27.0-32.0) H 02/20/20 14:15 MCHC 32.4 g/dL (31.0-37.0) 02/20/20 14:15 RDW Std Deviation 51.8 fl (28.0-62.0) 02/20/20 14:15 RDW Coeff of Komal 15 % (11.0-15.0) 02/20/20 14:15 Plt Count 182 K/uL (150-400) 02/20/20 14:15 MPV 9.80 fL (7.40-12.00) 02/20/20 14:15 Nucleated RBC % 0.0 /100WBC 02/20/20 14:15 Nucleated RBCs # 0 K/uL 02/20/20 14:15 SARS-CoV-2 RNA (RT-PCR) NEGATIVE (NEGATIVE) 02/20/20 14:15 Blood Type A NEGATIVE 02/20/20 14:15 Antibody Screen NEGATIVE 02/20/20 14:15 - Allergies Allergies/Adverse Reactions: Allergies Allergy/AdvReac Type Severity Reaction Status Date / Time No Known Allergies Allergy Verified 10/16/17 18:39 - Acknowledgements Anesthesia Type Planned: Epidural Pt an Appropriate Candidate for the Planned Anesthesia: Yes Alternatives and Risks of Anesthesia Discussed w Pt/Guardian: Yes Pt/Guardian Understands and Agrees with Anesthesia Plan: Yes PreAnesthesia Questionnaire HEENT History: Reports: None Cardiovascular History: Reports: None Respiratory History: Reports: None Gastrointestinal History: Reports: GERD Genitourinary History: Reports: Renal Calculus [employer] History: Reports: Musculoskeletal History: Reports: None Neurological History: Reports: None Psychiatric History: Reports: None Endocrine/Metabolic History: Reports: Hypothyroidism Hematologic History: Reports: Anemia Immunologic History: Reports: None Oncologic (Cancer) History: Reports: None Dermatologic History: Reports: None - Infectious Disease History Infectious Disease History: Reports: Chicken Pox - Past Surgical History Head Surgeries/Procedures: Reports: None HEENT Surgical History: Reports: Other (See Below) Other HEENT Surgeries/Procedures: Benign cyst removal that was near the nape area when she was a child Cardiovascular Surgical History: Reports: None Respiratory Surgical History: Reports: None GI Surgical History: Reports: None Female Surgical History: Reports: LEEP, Lithotripsy/ESWL, Other (See Below) Endocrine Surgical History: Reports: None Neurological Surgical History: Reports: None Musculoskeletal Surgical History: Reports: None Oncologic Surgical History: Reports: None - SUBSTANCE USE Smoking Status *Q: Never Smoker Second Hand Smoke Exposure: No Recreational Drug Use History: No - HOME MEDS Home Medications: Home Meds Calcium Carbonate [Tums] 500 mg PO 02/20/20 [History] Docusate Sodium [Colace] 200 mg PO DAILY 02/20/20 [History] Iron 02/20/20 [History] Levothyroxine 75 mcg PO ACBREAKFAST 02/20/20 [History] Levothyroxine [Synthroid] 100 mcg PO ACBREAKFAST 02/20/20 [History] Omeprazole Magnesium [Prilosec Otc] 02/20/20 [History] - CURRENT (IN HOUSE) MEDS Current Meds: Current Medications Butorphanol Tartrate (Stadol) 1 mg IVPUSH Q1H PRN PRN Reason: Pain Carboprost Tromethamine (Hemabate Ds) 250 mcg IM ASDIRECTED PRN PRN Reason: Post Hemorrhage Oxytocin/Sodium Chloride (Oxytocin 30 Unit/500 Ml-Ns) 30 unit in 500 mls @ 999 mls/hr IV TITRATE AGUSTIN Tranexamic Acid 1,000 mg/ (Sodium Chloride) 110 mls @ 660 mls/hr IV ONETIME PRN PRN Reason: Bleeding Lactated Ringer's (Ringers, Lactated) 1,000 mls @ 150 mls/hr IV ASDIRECTED AGUSTIN Last Infusion: 02/21/20 07:50 Dose: 999 mls/hr Documented by: Oxytocin/Sodium Chloride (Oxytocin 30 Unit/500 Ml-Ns) 30 unit in 500 mls @ 2 mls/hr IV TITRATE AGUSTIN; Protocol Last Titration: 02/21/20 06:45 Dose: 8 munits/min, 8 mls/hr Documented by: Lidocaine HCl (Xylocaine 1%) 50 ml INJECT ONETIME PRN PRN Reason: Laceration repair Methylergonovine Maleate (Methergine) 0.2 mg IM ASDIRECTED PRN PRN Reason: Post Hemorrhage Misoprostol (Cytotec) 200 mcg PO ONETIME PRN PRN Reason: Post Hemorrhage Misoprostol (Cytotec) 25 mcg VAG ONETIME PRN PRN Reason: Cervical Ripening Last Admin: 02/20/20 15:08 Dose: 25 mcg Documented by: Misoprostol (Cytotec) 25 mcg VAG Q4H PRN PRN Reason: Cervical Ripening Last Admin: 02/21/20 01:02 Dose: 25 mcg Documented by: Nalbuphine HCl (Nubain) 10 mg IVPUSH Q1H PRN PRN Reason: Pain (severe 7-10) Ondansetron HCl (Zofran) 4 mg IVPUSH Q6H PRN PRN Reason: Nausea/Vomiting Sodium Chloride (Saline Flush) 10 ml FLUSH ASDIRECTED PRN PRN Reason: Keep Vein Open Sodium Chloride (Saline Flush) 2.5 ml FLUSH ASDIRECTED PRN PRN Reason: Keep Vein Open Sodium Chloride (Normal Saline) 10 ml IV ASDIRECTED PRN PRN Reason: IV Use Sterile Water (Sterile Water For Irrigation) 1,000 ml IRR ASDIRECTED PRN PRN Reason: delivery Terbutaline Sulfate (Brethine) 0.25 mg SUBCUT ASDIRECTED PRN PRN Reason: Tacysystole Discontinued Medications Fentanyl (Sublimaze) Confirm Administered Dose 100 mcg .ROUTE .STK-MED ONE Stop: 02/21/20 07:57 Hydroxyzine Pamoate (Vistaril) 25 mg PO ONETIME ONE Stop: 02/21/20 01:52 Last Admin: 02/21/20 02:44 Dose: 25 mg Documented by: Ropivacaine (Naropin 0.2%) Confirm Administered Dose 100 mls @ as directed .ROUTE .[facility]-MED ONE Stop: 02/21/20 07:57 Terbutaline Sulfate (Brethine) 0.25 mg SUBCUT ASDIRECTED PRN PRN Reason: Tacysystole
--- NOTE | 2020-02-21 08:27 | PCM.PRNOTE ---
- Free Text/Narrative Note: Anes Note Patient requests epiduralfor L&D. Sitting position, Level L3-L4 midline approach. Sterile technique. Chloraprep scrub to lumbar area. Sterile fenestrated drape applied. Epidural spaces easily achieved single attempt using MAYLIN technique. MAYLIN at 3 cm. Cath threaded 5 cm with ease. Cath secured a tskin at 9 cm using sterile clear adhesive dressing. Test 0810 3 cc 1.5% lido with epi nag. 0818 Load 10 cc 0.2% ropivicaine with 1 mcg cc fentayl in lsow divided doses. 0821 Pump started wtih 90 cc same solution. Rate is 8 cc hr wtih 6 cc q 20 min prn bolus. Brenda well. Time with patient [id number] Cyrus Bahena CRNA
[2020-02-21] MEDS ORDERED: Ibuprofen 400 MG Tab PO PRN (14:06)
[2020-02-21] MEDS ORDERED: Benzocaine/Menthol 20%-0.5% Spray 78 GM Cannister TOP PRN (14:06)
[2020-02-21] MEDS ORDERED: Bisacodyl 10 MG Supp RECTAL PRN (14:06)
[2020-02-21] MEDS ORDERED: Lanolin 100% Cream 7 GM Tube TOP PRN (14:06)
[2020-02-21] MEDS ORDERED: Witch Hazel Medicated Pads 40/Jar TOP PRN (14:06)
[2020-02-21] MEDS ORDERED: Acetaminophen 500 MG Tab PO PRN (14:06)
--- NOTE | 2020-02-21 15:08 | OR ---
SURGEON: Ryland Meyers MD DATE OF PROCEDURE: 02/21/2020 INDICATION FOR PROCEDURE: A 34-year-old, G2, P 1-0-0-1, at 39 weeks 5 days, admitted for induction of labor. complicated by conception with a frozen embryo transfer, velamentous cord insertion, and hypothyroidism. She did not have other issues in and was GBS negative. The patient received 3 doses of Cytotec for induction and was started on Pitocin. She had AROM with clear fluid. She received an epidural with good pain control. Baby had category 1 tracing throughout. She continued to progress and became fully dilated and began pushing with contractions. PREOPERATIVE DIAGNOSES: 1. Miranda intrauterine at 39 weeks and 5 days. 2. Velamentous cord insertion. POSTOPERATIVE DIAGNOSES: 1. Miranda intrauterine at 39 weeks and 5 days. 2. Velamentous cord insertion. PROCEDURE PERFORMED: Normal spontaneous vaginal delivery, repair of first-degree laceration. ANESTHESIA: Epidural. ANESTHESIOLOGIST: Dr. Liya Bailey. ESTIMATED BLOOD LOSS: 350 mL. FINDINGS: Male . scores are 8 and 9. Weight of 8 pounds 8 ounces. She had uterine atony , which improved with fundal massage. She was given Methergine x1 and additional bag of Pitocin. DESCRIPTION OF PROCEDURE: The patient pushed with contractions for approximately 30 minutes. head delivered in occiput anterior position over intact perineum. Anterior shoulder delivered easily. No nuchal cord was noted. Posterior shoulder was then delivered followed by the remaining body. The baby was placed on maternal chest and evaluated by awaiting nursery staff. The baby was pink, crying, and moving all extremities after delivery. The umbilical cord was clamped and cut after 60 seconds and no longer pulsating. Cord gases were obtained. The placenta was removed with gentle traction on the umbilical cord. A separate lobe was noted to be attached to the placenta. It was examined and found to be intact with 3 vessel cord. Velamentous cord insertion was noted. A bimanual exam was performed and no remaining membranes was in the endometrial cavity. The lower uterine segment was boggy, and she had moderate bleeding, which improved after bimanual massage. She was given a dose of Methergine and a second bag of Pitocin. She was given care instructions, and she tolerated the procedure well. CHANDRIKA / CHRISTA /[id number] ELICIA
[2020-02-21] MEDS: Docusate Sodium 100 MG Cap PO PRN (16:20)
[2020-02-21] MEDS: Ibuprofen 800 MG Tab PO PRN ×2 (16:21→22:26)
[2020-02-21] MEDS: Acetaminophen 500 MG Tab PO PRN ×2 (16:21→21:28)
[2020-02-22] MEDS: Ibuprofen 800 MG Tab PO PRN ×2 (04:17→14:47)
--- NOTE | 2020-02-22 07:35 | PCM48HPAN ---
Post Anesthesia Note - EVALUATION WITHIN 48HRS OF ANESTHETIC Vital Signs in Normal Range: Yes Patient Participated in Evaluation: Yes Respiratory Function Stable: Yes Airway Patent: Yes Cardiovascular Function Stable: Yes Hydration Status Stable: Yes Pain Control Satisfactory: Yes Nausea and Vomiting Control Satisfactory: Yes Mental Status Recovered: Yes Vital Signs: Last Vital Signs Temp 36.1 C 02/22/20 04:32 Pulse 69 02/22/20 04:32 Resp 15 02/22/20 04:32 BP 104/69 02/22/20 04:32 Pulse Ox 96 02/22/20 04:32
[2020-02-22] MEDS: Docusate Sodium 100 MG Cap PO PRN (08:34)
[2020-02-22] MEDS: Acetaminophen 500 MG Tab PO PRN (08:34)
--- NOTE | 2020-02-22 10:43 | PCM.PNPP ---
- General Info Date of Service: 02/22/20 Functional Status: Reports: Pain Controlled, Tolerating Diet, Ambulating, Urinating, Other (Bleeding light.) - Review of Systems General: Reports: No Symptoms HEENT: Reports: No Symptoms Pulmonary: Reports: No Symptoms Cardiovascular: Reports: No Symptoms Gastrointestinal: Reports: No Symptoms Genitourinary: Reports: No Symptoms Musculoskeletal: Reports: No Symptoms Skin: Reports: No Symptoms Neurological: Reports: No Symptoms Psychiatric: Reports: No Symptoms - Patient Data Vital Signs - Most Recent: Last Vital Signs Temp 36.1 C 02/22/20 08:00 Pulse 78 02/22/20 08:00 Resp 14 02/22/20 08:00 BP 114/66 02/22/20 08:00 Pulse Ox 96 02/22/20 08:00 Weight - Most Recent: 186 lb I&O - Last 24 Hours: Intake & Output 02/21/20 02/22/20 02/22/20 22:59 06:59 14:59 Intake Total 2 Balance 2 Lab Results - Last 24 Hours: Laboratory Results - last 24 hr 02/21/20 02/21/20 02/22/20 Range/Units 13:23 14:23 05:53 Hgb 10.5 L (12.0-16.0) g/dL Hct 31.6 L (36.0-46.0) % Cord ABG pH 7.256 (7.18-7.38) Cord ABG Base Excess -7 (-10--2) Cord VBG pH 7.294 (7.25-7.45) Cord VBG Base Excess -7 (-10--2) Antibody Screen NEGATIVE Screen NEGATIVE (NEGATIVE) RhIG Candidate? YES Rhogam Indicated YES, BABY RH POS H Med Orders - Current: Current Medications Acetaminophen (Tylenol Extra Strength) 500 mg PO Q4H PRN PRN Reason: Pain Acetaminophen (Tylenol Extra Strength) 1,000 mg PO Q4H PRN PRN Reason: Pain Last Admin: 02/22/20 08:34 Dose: 1,000 mg Documented by: Benzocaine/Menthol (Dermoplast Pain Relief 20%-0.5% Blanchard) 0 gm TOP ASDIRECTED PRN PRN Reason: Perineal Comfort Measure Last Admin: 02/21/20 15:06 Dose: 1 canister Documented by: Bisacodyl (Dulcolax) 10 mg RECTAL ONETIME PRN PRN Reason: Constipation Butorphanol Tartrate (Stadol) 1 mg IVPUSH Q1H PRN PRN Reason: Pain Carboprost Tromethamine (Hemabate Ds) 250 mcg IM ASDIRECTED PRN PRN Reason: Post Hemorrhage Docusate Sodium (Colace) 100 mg PO BID PRN PRN Reason: Constipation Last Admin: 02/22/20 08:34 Dose: 100 mg Documented by: Emollient Ointment (Lansinoh Hpa) 0 gm TOP ASDIRECTED PRN PRN Reason: Sore Nipples Last Admin: 02/21/20 15:05 Dose: 1 tube Documented by: Oxytocin/Sodium Chloride (Oxytocin 30 Unit/500 Ml-Ns) 30 unit in 500 mls @ 999 mls/hr IV TITRATE AGUSTIN Last Admin: 02/21/20 13:52 Dose: 999 mls/hr Documented by: Tranexamic Acid 1,000 mg/ (Sodium Chloride) 110 mls @ 660 mls/hr IV ONETIME PRN PRN Reason: Bleeding Lactated Ringer's (Ringers, Lactated) 1,000 mls @ 150 mls/hr IV ASDIRECTED AGUSTIN Last Admin: 02/21/20 08:28 Dose: 999 mls/hr Documented by: Oxytocin/Sodium Chloride (Oxytocin 30 Unit/500 Ml-Ns) 30 unit in 500 mls @ 2 mls/hr IV TITRATE AGUSTIN; Protocol Last Titration: 02/21/20 12:23 Dose: 18 munits/min, 18 mls/hr Documented by: Ibuprofen (Motrin) 400 mg PO Q4H PRN PRN Reason: Pain Ibuprofen (Motrin) 800 mg PO Q6H PRN PRN Reason: Pain Last Admin: 02/22/20 04:17 Dose: 800 mg Documented by: Lidocaine HCl (Xylocaine 1%) 50 ml INJECT ONETIME PRN PRN Reason: Laceration repair Methylergonovine Maleate (Methergine) 0.2 mg IM ASDIRECTED PRN PRN Reason: Post Hemorrhage Last Admin: 02/21/20 13:43 Dose: 0.2 mg Documented by: Misoprostol (Cytotec) 200 mcg PO ONETIME PRN PRN Reason: Post Hemorrhage Misoprostol (Cytotec) 25 mcg VAG Q4H PRN PRN Reason: Cervical Ripening Last Admin: 02/21/20 01:02 Dose: 25 mcg Documented by: Nalbuphine HCl (Nubain) 10 mg IVPUSH Q1H PRN PRN Reason: Pain (severe 7-10) Ondansetron HCl (Zofran) 4 mg IVPUSH Q6H PRN PRN Reason: Nausea/Vomiting Sodium Chloride (Saline Flush) 10 ml FLUSH ASDIRECTED PRN PRN Reason: Keep Vein Open Sodium Chloride (Saline Flush) 2.5 ml FLUSH ASDIRECTED PRN PRN Reason: Keep Vein Open Sodium Chloride (Normal Saline) 10 ml IV ASDIRECTED PRN PRN Reason: IV Use Sterile Water (Sterile Water For Irrigation) 1,000 ml IRR ASDIRECTED PRN PRN Reason: delivery Terbutaline Sulfate (Brethine) 0.25 mg SUBCUT ASDIRECTED PRN PRN Reason: Tacysystole Witch Frankie (Tucks) 1 pad TOP ASDIRECTED PRN PRN Reason: comfort care Last Admin: 02/21/20 15:06 Dose: 1 tub Documented by: Discontinued Medications Fentanyl (Sublimaze) Confirm Administered Dose 100 mcg .ROUTE .STK-MED ONE Stop: 02/21/20 07:57 Hydroxyzine Pamoate (Vistaril) 25 mg PO ONETIME ONE Stop: 02/21/20 01:52 Last Admin: 02/21/20 02:44 Dose: 25 mg Documented by: Ropivacaine (Naropin 0.2%) Confirm Administered Dose 100 mls @ as directed .ROUTE .STK-MED ONE Stop: 02/21/20 07:57 Misoprostol (Cytotec) 25 mcg VAG ONETIME PRN PRN Reason: Cervical Ripening Last Admin: 02/20/20 15:08 Dose: 25 mcg Documented by: Terbutaline Sulfate (Brethine) 0.25 mg SUBCUT ASDIRECTED PRN PRN Reason: Tacysystole - Interaction Infant Disposition, : at Bedside Infant Interaction: Holding Infant Support Person: - Recovery Exam Fundal Tone: Firm Fundal Level: 2 Fingerbreadths Below Umbilicus Fundal Placement: Midline Lochia Amount: Small Lochia Color: Rubra/Red Episiotomy/Laceration: Approximated Bladder Status: Voiding Urinary Elimination: Voided - Exam General: Alert, Oriented, Cooperative, No Acute Distress HEENT: Pupils Equal, Pupils Reactive Neck: Supple, Trachea Midline, No JVD Lungs: Normal Respiratory Effort GI/Abdominal Exam: Soft, Non-Tender, No Distention Extremities: Normal Inspection, Normal Range of Motion, Non-Tender, No Pedal Edema Skin: Warm, Dry, Intact Neurological: No New Focal Deficit Psy/Mental Status: Alert, Normal Affect, Normal Mood - Problem List Review Problem List Initiated/Reviewed/Updated: Yes - My Orders Last 24 Hours: My Active Orders 02/21/20 14:06 Patient Status [ADT] Routine May Shower [RC] ASDIRECTED Up ad Risa [RC] ASDIRECTED Vital Signs [RC] PER UNIT ROUTINE Acetaminophen [Tylenol Extra Strength] 1,000 mg PO Q4H PRN Acetaminophen [Tylenol Extra Strength] 500 mg PO Q4H PRN Benzocaine/Menthol [Dermoplast Pain Relief 20%-0.5% Blanchard] 0 gm TOP ASDIRECTED PRN Docusate Sodium [Colace] 100 mg PO BID PRN Ibuprofen [Motrin] 400 mg PO Q4H PRN Ibuprofen [Motrin] 800 mg PO Q6H PRN Lanolin [Lansinoh HPA] See Dose Instructions TOP ASDIRECTED PRN bisacodyL [Dulcolax] 10 mg RECTAL ONETIME PRN witch Frankie [Tucks] 1 pad TOP ASDIRECTED PRN Assess Lochia [WOMSER] Per Unit Routine Assess Uterine Involution [WOMSER] Per Unit Routine Peripheral IV Discontinue [OM.PC] Routine 02/21/20 14:07 Ice Therapy [OM.PC] Per Unit Routine Perineal Care [OM.PC] Per Unit Routine 02/21/20 Dinner Regular Diet [DIET] 02/22/20 10:38 Ready for Discharge [RC] PER UNIT ROUTINE - Assessment Assessment:: 34yo PPD1 s/p , stable and recovering well. - Plan Plan:: vital stable bleeding light, Hgb 10.5, denies s/s of anemia. Sent iron supplements daily ambulating and voiding O neg, baby Rh +, received rhogam Stable for discharge home, reviewed care instructions
== END 2020-02-22 16:20 | disposition home or self-care (01) | DRG 560 ==
LOC: MW.OB 13:23 → OBSVTOIN 02-21 13:23 → MW.OB 02-21 16:29
PROVIDERS: ADMIT Obstetrics & Gynecology; ATTEND Obstetrics & Gynecology
PROC: 10E0XZZ Delivery of Products of Conception, External Approach (ICD-10-PCS; principal; 2020-02-21)
PROC: 0HQ9XZZ Repair Perineum Skin, External Approach (ICD-10-PCS; 2020-02-21)
PROC: 3E0R3BZ Introduction of Anesthetic Agent into Spinal Canal, Percutaneous Approach (ICD-10-PCS; 2020-02-21)
PROC: 00HU33Z Insertion of Infusion Device into Spinal Canal, Percutaneous Approach (ICD-10-PCS; 2020-02-21)
PROC: 3E0234Z Introduction of Serum, Toxoid and Vaccine into Muscle, Percutaneous Approach (ICD-10-PCS; 2020-02-21)
PROC: 10907ZC Drainage of Amniotic Fluid, Therapeutic from Products of Conception, Via Natural or Artificial Opening (ICD-10-PCS; 2020-02-21)
DX: O99.284 Endocrine, nutritional and metabolic diseases complicating childbirth (principal); E03.9 Hypothyroidism, unspecified; Z3A.39 39 weeks gestation of pregnancy; Z37.0 Single live birth; O70.0 First degree perineal laceration during delivery; O43.123 Velamentous insertion of umbilical cord, third trimester; O26.893 Other specified pregnancy related conditions, third trimester; Z67.11 Type A blood, Rh negative; O09.813 Supervision of pregnancy resulting from assisted reproductive technology, third trimester; Z20.828 Contact with and (suspected) exposure to other viral communicable diseases
CPT/HCPCS: 36415; 51701; 51702; 59025; 59409; 82803; 85014; 85018; 85027; 85460; 86592; 86593; 86850; 86900; 86901; A9270-GY; J2210; J2590; J2792; J2795; J3010; J7120; U0002